=== PATIENT | male | born 1950 | race Caucasian/White ===

== ENCOUNTER → 2016-04-11 | Outpatient (CLI) | payer BC | END | disposition home or self-care (01) | LOC: C.LAB 14:18 | DX: R50.9 Fever, unspecified (principal); R05 Cough ==

== ENCOUNTER → 2016-06-26 | Outpatient (CLI) | payer BC ==
[2016-06-26 19:17] LABS: BASO % 0.3 %; BASO ABS # 0.03 K/uL (0-0.2); COMPLETE YES; EOS % 1.7 %; HEMATOCRIT 45.8 % (42-52); IG% 0.5 %; LYMPH % 33.6 %; LYMPH ABS # 3.71 K/uL (1.2-3.4); MEAN CELL VOLUME 89.8 fL (80-100); MEAN CORPUSCULAR HEMOGLOBIN 29.8 pg (25-34); MEAN CORPUSCULAR HGB CONC 33.2 g/dl (32-36); MEAN PLATELET VOLUME 9.6 fL (7.4-10.4); MONO % 10.1 %; NEUT % 53.8 %; PLATELET COUNT 305 K/uL (130-400); WHITE BLOOD COUNT 11.04 K/uL (4.8-10.8)
[2016-06-26 19:18] LABS: URINE APPEARANCE CLEAR (CLEAR); URINE BILIRUBIN NEG (NEG); URINE COLOR YELLOW; URINE EPITHELIAL CELL AUTO 0-5 /lpf (0-5); URINE NITRITE NEG (NEG); UROBILINOGEN NEG (NEG)
[2016-06-26 19:22] LABS: MANUAL MICROSCOPIC REQUIRED? NO; REVIEW REQ? YES
[2016-06-26 19:40] LABS: ALT/SGPT 36 U/L (12-78); AST/SGOT 19 U/L (15-37); BLOOD UREA NITROGEN 20 mg/dl (7-18); BUN/CREATININE RATIO 23.5 (10-20); CALCIUM 9.1 mg/dl (8.5-10.1); CARBON DIOXIDE 30 mmol/L (21-32); CHLORIDE 108 mmol/L (98-107); CREATININE 0.84 mg/dl (0.60-1.40); GLUCOSE 82 mg/dl (70-99); POTASSIUM 4.1 mmol/L (3.5-5.1); SODIUM 143 mmol/L (136-145)
[2016-06-26 19:42] LABS: ALB/GLOB RATIO 1.2 (0.9-2); ALKALINE PHOSPHATASE 53 U/L (45-117)
--- NOTE | 2016-06-27 13:06 | CODING QUERY NO DIAGNOSIS ---
: 1950 TREATMENT RENDERED WITHOUT A DIAGNOSIS To promote full compliance with coding requirements relating to patient care, physician participation is requested in all cases of intel analyst uncertainty. Please assist us with providing a diagnosis/symptom for the test(s) below: A diagnosis/symptom was not documented on your Order. A valid diagnosis/symptom is required to bill all insurances. Please remember that we are unable to code a diagnosis of rule out, probable, possible, questionable, or suspected. Tests that require a diagnosis: DOS: 06/26/16 * Comprehensive Metabolic Panel DIAGNOSIS: * CBC w/Auto Differential DIAGNOSIS: * UA Clean Catch w/Micro DIAGNOSIS: Provider Signature: Date: Thank you Yessenia Britt [facility] Information Management Once completed, please kindly fax back to [phone] For questions please call [phone]
== END | disposition home or self-care (01) ==
LOC: C.LAB 18:12
DX: R10.9 Unspecified abdominal pain (principal)

== ENCOUNTER → 2016-06-28 | Outpatient (CLI) | payer BC ==
--- NOTE | 2016-06-28 07:09 | DIAGNOSTIC IMAGING REPORT ---
[facility] ultrasound BILIARY ABDOMEN LIMITED CLINICAL HISTORY: AB PAIN pain. Nausea. TECHNIQUE: Ultrasound COMPARISON STUDY: None FINDINGS: Gallstones are present within the gallbladder lumen. Common bile duct is 5 mm. Fatty infiltration of liver. Pancreas and right kidney unremarkable. Limited visibility of pancreas. IMPRESSION: Gallstones. Normal caliber bile ducts. Fatty infiltration of liver. Electronically signed by: Levi Parada M.D. 06/28/2016 7:07 AM Dictated Date/Time: 06/28/2016 7:05 AM
== END | disposition home or self-care (01) ==
LOC: C.ULTR 06:33
DX: K80.20 Calculus of gallbladder without cholecystitis without obstruction (principal); K76.0 Fatty (change of) liver, not elsewhere classified; R10.9 Unspecified abdominal pain

== ENCOUNTER → 2016-08-13 | Outpatient (CLI) | payer BC ==
--- NOTE | 2016-08-13 17:36 | DIAGNOSTIC IMAGING REPORT ---
RENAL ULTRASOUND HISTORY: Flank pain FLANK PAIN, POSSIBLE STONE COMPARISON: None. FINDINGS: Right kidney: Maximum dimension 14 cm. No evidence for hydronephrosis. Normal corticomedullary differentiation and cortical thickness. Left kidney: Maximum dimension 13.6 cm. No evidence for hydronephrosis Bladder: No bladder wall thickening. The bilateral ureteral jets were identified. IMPRESSION: Normal renal ultrasound. Electronically signed by: Levi Parada M.D. 08/13/2016 5:35 PM Dictated Date/Time: 08/13/2016 5:34 PM
== END | disposition home or self-care (01) ==
LOC: C.ULTR 16:57
DX: R10.9 Unspecified abdominal pain (principal)

== ENCOUNTER → 2016-08-14 | Outpatient (CLI) | payer BC ==
[2016-08-14 12:24] LABS: URINE APPEARANCE CLEAR (CLEAR); URINE BILIRUBIN NEG (NEG); URINE COLOR YELLOW; URINE EPITHELIAL CELL AUTO 0-5 /lpf (0-5); URINE NITRITE NEG (NEG); URINE PH 5.5 (4.5-7.5); URINE SPECIFIC GRAVITY 1.019 (1.000-1.030); UROBILINOGEN NEG (NEG)
[2016-08-14 12:28] LABS: MANUAL MICROSCOPIC REQUIRED? NO; REVIEW REQ? NO
[2016-08-14 12:33] LABS: BASO % 0.4 %; BASO ABS # 0.03 K/uL (0-0.2); COMPLETE YES; EOS % 1.7 %; HEMATOCRIT 45.6 % (42-52); IG% 0.2 %; LYMPH % 24.7 %; MEAN CELL VOLUME 90.5 fL (80-100); MEAN CORPUSCULAR HGB CONC 34.2 g/dl (32-36); MEAN PLATELET VOLUME 10.3 fL (7.4-10.4); MONO % 12.9 %; NEUT % 60.1 %; PLATELET COUNT 275 K/uL (130-400); RED BLOOD COUNT 5.04 M/uL (4.7-6.1); WHITE BLOOD COUNT 8.09 K/uL (4.8-10.8)
[2016-08-14 12:45] LABS: BLOOD UREA NITROGEN 14 mg/dl (7-18); BUN/CREATININE RATIO 16.6 (10-20); CALCIUM 9.3 mg/dl (8.5-10.1); CARBON DIOXIDE 28 mmol/L (21-32); CHLORIDE 107 mmol/L (98-107); CREATININE 0.87 mg/dl (0.60-1.40); GLUCOSE 94 mg/dl (70-99); POTASSIUM 4.1 mmol/L (3.5-5.1); SODIUM 141 mmol/L (136-145)
[2016-08-14 12:52] LABS: ALB/GLOB RATIO 1.2 (0.9-2); ALKALINE PHOSPHATASE 58 U/L (45-117); ALT/SGPT 43 U/L (12-78); AST/SGOT 23 U/L (15-37)
== END | disposition home or self-care (01) ==
LOC: C.LAB 09:55
DX: R10.9 Unspecified abdominal pain (principal)

== ENCOUNTER → 2016-09-05 | Outpatient (CLI) | payer BC ==
[2016-09-05 16:48] LABS: MANUAL MICROSCOPIC REQUIRED? NO; REVIEW REQ? NO; URINE APPEARANCE CLEAR (CLEAR); URINE BILIRUBIN NEG (NEG); URINE COLOR YELLOW; URINE EPITHELIAL CELL AUTO 0-5 /lpf (0-5); URINE NITRITE NEG (NEG); URINE PH 5.5 (4.5-7.5); URINE SPECIFIC GRAVITY 1.017 (1.000-1.030); UROBILINOGEN NEG (NEG)
== END | disposition home or self-care (01) ==
LOC: C.LAB 15:59
DX: R31.9 Hematuria, unspecified (principal)

== ENCOUNTER → 2017-09-11 | Outpatient (CLI) | payer OTHER ==
[2017-09-11 10:37] LABS: BASO % 0.2 %; BASO ABS # 0.02 K/uL (0-0.2); EOS % 1.4 %; EOS ABS # 0.16 K/uL (0-0.5); HEMATOCRIT 46.1 % (42-52); HEMOGLOBIN 15.7 g/dL (14.0-18.0); IG# 0.05 K/uL (0.00-0.02); LYMPH % 22.7 %; LYMPH ABS # 2.51 K/uL (1.2-3.4); MEAN CELL VOLUME 90.4 fL (80-100); MEAN CORPUSCULAR HEMOGLOBIN 30.8 pg (25-34); MEAN CORPUSCULAR HGB CONC 34.1 g/dl (32-36); MEAN PLATELET VOLUME 10.3 fL (7.4-10.4); MONO % 11.6 %; MONO ABS # 1.28 K/uL (0.11-0.59); NEUT % 63.6 %; NEUT ABS # 7.06 K/uL (1.4-6.5); PLATELET COUNT 270 K/uL (130-400); RED CELL DISTRIBUTION WIDTH CV 13.9 % (11.5-14.5); RED CELL DISTRIBUTION WIDTH SD 45.8 fL (36.4-46.3); WHITE BLOOD COUNT 11.08 K/uL (4.8-10.8)
[2017-09-11 13:38] LABS: ALBUMIN 3.8 gm/dl (3.4-5.0); ALKALINE PHOSPHATASE 51 U/L (45-117); ALT/SGPT 38 U/L (12-78); AST/SGOT 25 U/L (15-37); BLOOD UREA NITROGEN 16 mg/dl (7-18); CALCIUM 8.6 mg/dl (8.5-10.1); CARBON DIOXIDE 25 mmol/L (21-32); CHOLESTEROL 164 mg/dl (0-200); CREATININE 0.99 mg/dl (0.60-1.40); GLUCOSE 98 mg/dl (70-99); LDL CHOLESTEROL CALCULATED 95 mg/dl; POTASSIUM 4.3 mmol/L (3.5-5.1); SODIUM 139 mmol/L (136-145); TOTAL PROTEIN 7.2 gm/dl (6.4-8.2)
== END | disposition home or self-care (01) ==
LOC: C.LABBC 09:06
DX: R10.9 Unspecified abdominal pain (principal); N40.1 Benign prostatic hyperplasia with lower urinary tract symptoms; R30.0 Dysuria; Z13.220 Encounter for screening for lipoid disorders

== ENCOUNTER 2022-12-18 14:26 | Observation (INO) ==
--- NOTE | 2022-12-18 15:31 | Emergency Department Note ---
History of Present Illness General Chief complaint: Visual Disturbance Stated complaint: VISUAL DISTURBANCE, NAUSEA Time Seen by Provider: 12/18/22 14:54 History of Present Illness 72-year-old male who presents to the emergency department for evaluation of diplopia. Patient states he woke up yesterday morning in his usual state of health and was scrolling on his phone and watching TV when he developed sudden double vision in his bilateral eyes. He states he covered his left eye and was able to see clearly out of the right and then when he switched to the right was able to see clearly out of the left but through both eyes saw double of everything. The incident lasted for approximately 3 to 5 minutes. He denies any other obvious associated symptoms including eye pain, headaches, dizziness/lightheadedness, nausea/vomiting, extremity weakness/numbness/tingling, slurred speech or facial droop. No complete blindness of his eyes. He does note that he had a diffusely red right eye a few weeks ago and was evaluated by many eye and told he had broken blood vessels. This spontaneously resolved on its own. Patient denies any recurrence of the double vision since his episode yesterday morning. He denies chest pain, shortness of breath, abdominal pain, diarrhea/constipation, urinary symptoms. Denies fever/chills or recent cold symptoms. No known insect bites or tick bites. He is a chronic smoker. He is not on any medications at home but tells me he has been advised to start a statin medication for high cholesterol. Denies history of stroke or [place]. No recent falls or trauma or head injury. Home Medications Medication Instructions Recorded Confirmed Type No Known Home Medications 12/18/22 12/18/22 History Allergies Allergy/AdvReac Type Severity Reaction Status Date / Time No Known Allergies Allergy Unverified 12/18/22 18:01 Past Med/Surg History Medical History (Updated 12/18/22 @ 19:54 by Kinsey Nam PA-C) Benign neoplasm of colon GERD (gastroesophageal reflux disease) Tobacco dependence Surgical History (Updated 12/18/22 @ 17:53 by Magdalena Sanon PA-C) History of tonsillectomy and adenoidectomy Hx of colonoscopy Family History (Updated 12/18/22 @ 17:55 by Magdalena Sanon PA-C) Other Family history non-contributory Social History Smoking Status: Current every day smoker Tobacco Type: Cigarettes Cigarettes Per Day: 20; Second Hand Exposure: No; Preferred Language: British Feels Safe at Home: Yes Physical Exam Vital Signs Vital Signs - 24 hr 12/18/22 14:47 12/18/22 18:50 Temperature 35.9 C L Temperature Source Temporal Artery Scan Pulse Rate 70 Pulse Rate [Apical] 65 Respiratory Rate 16 17 Respiratory Effort / Characteristics Non-Labored Spontaneous Non-Labored Respiratory Depth Normal Normal Respiratory Pattern Regular Regular Blood Pressure 145/89 H Blood Pressure [Right Arm] 141/76 H Blood Pressure Mean 107 Blood Pressure Mean [Right Arm] 97 Blood Pressure Position Sitting Pulse Oximetry 98 96 Oxygen Delivery Method Room Air Room Air Sepsis Recent Fever Within 48 Hours No Sepsis New/Unexplained Change in Mental Status N/A Sepsis Action Taken by Nursing No Action Required Constitutional: alert and oriented x3. no acute distress. nontoxic HEENT: normocephalic, atraumatic. No facial trauma. No scalp tenderness or hematoma. Normal conjunctiva.PERRLA. EOM's grossly intact. TMs pearly sin without effusion. Pharynx pink without exudate. Tonsils nonenlarged. Mucus membranes moist Neck: neck is supple, nontender. Neck ROM intact. No meningeal signs Respiratory: lungs are clear to auscultation without wheezes, rhonchi, or rales bilaterally. equal chest rise. normal respiratory effort, no accessory muscle use. Cardiovascular: normal heart sounds without murmur. regular rate and rhythm. GI: abdomen is soft, nontender. No palpable masses. No rebound tenderness or guarding. No CVA tenderness MSK: Moves all 4 extremities spontaneously Peripheral vascular: extremities warm and well perfused with palpable pulses. Neuro: without focal neuro deficits. GCS 15. CNII-XII intact. Speech clear, tongue midline, without facial droop. Strength +5 equal throughout all four extremities. Psych:appropriate mood and affect. Course Administered Medications Nicotine (Nicotine 14 Mg/24 Hr Patch) 14 mg TD QAM MARI Stop: 01/17/23 17:14 Last Admin: 12/18/22 17:22 Dose: 14 mg Documented By: AB Discontinued Medications Aspirin (Aspirin 81 Mg Chew) 324 mg PO NOW STA Stop: 12/18/22 17:10 Last Admin: 12/18/22 17:22 Dose: 324 mg Documented By: AB Ioversol (Optiray 320 500ml) 112 ml IV ONCE ONE Stop: 12/18/22 16:34 Last Admin: 12/18/22 16:34 Dose: 112 ml Documented By: ARNULFO Medical Decision Making Differential Diagnosis CVA, cranial nerve palsy, retinal detachment, vitreous hemorrhage, hyphema, glaucoma, arteritis, corneal ulcer, CRAO, CRVO, vitreous detachment, as well as other pathologies Laboratory Data Attestation: I reviewed the patient's lab results. 12/18/22 15:35 12/18/22 15:35 Lab Results 12/18/22 12/18/22 12/18/22 Range/Units 15:35 15:35 15:35 WBC 9.36 (4.8-10.8) K/ul RBC 5.27 (4.70-6.10) M/uL Hgb 16.2 (14.0-18.0) g/dl POC Hgb (14.0-18.0) g/dl Hct 47.2 (42.0-52.0) % POC Hct (42-52) % MCV 89.6 (80.0-100.0) fL MCH 30.7 (25.0-34.0) pg MCHC 34.3 (32.0-36.0) g/dL RDW Std Deviation 44.2 (36.4-46.3) fL RDW Coeff of Evan 13.6 (11.5-14.5) % Plt Count 259 (130-400) K/uL MPV 9.4 (9.4-12.4) fL Immature Gran % (Auto) 0.3 % Neut % (Auto) 55.5 % Lymph % (Auto) 29.4 % Wythe % (Auto) 12.6 % Eos % (Auto) 1.7 % Baso % (Auto) 0.5 % Neut # (Auto) 5.19 (1.40-6.50) K/uL Lymph # (Auto) 2.75 (1.20-3.40) K/uL Wythe # (Auto) 1.18 H (0.11-0.59) K/uL Eos # (Auto) 0.16 (0.00-0.50) K/uL Baso # (Auto) 0.05 (0.00-0.20) K/uL Immature Gran # (Auto) 0.03 (0.01-0.20) K/uL PT 10.8 (9.0-12.0) Seconds INR 1.0 (0.9-1.1) APTT 27.9 (21.0-31.0) Seconds PTT Ratio 1.0 POC Sodium (135-144) mmol/L Sodium 139 (136-145) mmol/L POC Potassium (3.3-5.0) mmol/L Potassium 4.5 (3.5-5.1) mmol/L POC Chloride (101-112) mmol/L Chloride 106 (98-107) mmol/L Carbon Dioxide 29 (21-32) mmol/L POC Total CO2 (24-31) mmol/L Anion Gap 4 (3-11) POC Anion Gap (16-25) mmol/L POC BUN (7-18) mg/dl BUN 19 (6-23) mg/dl Creatinine 0.79 (0.6-1.4) mg/dl POC Creatinine (0.6-1.3) mg/dl Est Cr Clr Drug Dosing 120.2 ml/min Est GFR ( Amer) 105.4 ml/min Est GFR (Non-Af Amer) 91.0 ml/min BUN/Creatinine Ratio 24.1 H (10-20) Glucose 87 (70-99(Fasting)) mg/dl POC Glucose (other) (70-99) mg/dl Calcium 9.3 (8.6-10.3) mg/dl POC Ioniz Calcium Jazlyn (1.12-1.32) mmol/l Total Bilirubin 0.5 (0.2-1.0) mg/dl AST 22 (13-39) U/L ALT 21 (7-52) U/L Alkaline Phosphatase 48 (34-104) U/L Troponin I High Sens 122.6 H* (0-20) pg/ml Total Protein 7.0 (6.0-8.3) gm/dl Albumin 4.3 (3.4-5.0) gm/dl Globulin 2.7 (2.5-4.0) gm/dl Albumin/Globulin Ratio 1.6 (0.9-2) 12/18/22 12/18/22 Range/Units 15:58 18:05 WBC (4.8-10.8) K/ul RBC (4.70-6.10) M/uL Hgb (14.0-18.0) g/dl POC Hgb 16.3 (14.0-18.0) g/dl Hct (42.0-52.0) % POC Hct 48 (42-52) % MCV (80.0-100.0) fL MCH (25.0-34.0) pg MCHC (32.0-36.0) g/dL RDW Std Deviation (36.4-46.3) fL RDW Coeff of Evan (11.5-14.5) % Plt Count (130-400) K/uL MPV (9.4-12.4) fL Immature Gran % (Auto) % Neut % (Auto) % Lymph % (Auto) % Wythe % (Auto) % Eos % (Auto) % Baso % (Auto) % Neut # (Auto) (1.40-6.50) K/uL Lymph # (Auto) (1.20-3.40) K/uL Wythe # (Auto) (0.11-0.59) K/uL Eos # (Auto) (0.00-0.50) K/uL Baso # (Auto) (0.00-0.20) K/uL Immature Gran # (Auto) (0.01-0.20) K/uL PT (9.0-12.0) Seconds INR (0.9-1.1) APTT (21.0-31.0) Seconds PTT Ratio POC Sodium 140 (135-144) mmol/L Sodium (136-145) mmol/L POC Potassium 4.3 (3.3-5.0) mmol/L Potassium (3.5-5.1) mmol/L POC Chloride 102 (101-112) mmol/L Chloride (98-107) mmol/L Carbon Dioxide (21-32) mmol/L POC Total CO2 27 (24-31) mmol/L Anion Gap (3-11) POC Anion Gap 16.0 (16-25) mmol/L POC BUN 19 H (7-18) mg/dl BUN (6-23) mg/dl Creatinine (0.6-1.4) mg/dl POC Creatinine 0.8 (0.6-1.3) mg/dl Est Cr Clr Drug Dosing ml/min Est GFR ( Amer) ml/min Est GFR (Non-Af Amer) ml/min BUN/Creatinine Ratio (10-20) Glucose (70-99(Fasting)) mg/dl POC Glucose (other) 86 (70-99) mg/dl Calcium (8.6-10.3) mg/dl POC Ioniz Calcium Jazlyn 1.22 (1.12-1.32) mmol/l Total Bilirubin (0.2-1.0) mg/dl AST (13-39) U/L ALT (7-52) U/L Alkaline Phosphatase (34-104) U/L Troponin I High Sens 116.6 H* (0-20) pg/ml Total Protein (6.0-8.3) gm/dl Albumin (3.4-5.0) gm/dl Globulin (2.5-4.0) gm/dl Albumin/Globulin Ratio (0.9-2) Imaging Data My Impression: CXR per my interpretation without acute focal consolidation, pneumothorax or pleural effusion Radiologist's Impression: Chest X-Ray 12/18/22 15:22 SINGLE VIEW CHEST CLINICAL HISTORY: Atypical chest pain. FINDINGS: 2 AP, portable, upright chest radiographs are compared to study dated 02/25/2018 and correlated with chest CT dated 11/27/2020. The examination is degraded by portable technique and apical lordotic positioning. The heart is enlarged noting atherosclerotic calcification of the thoracic aorta. The pulmonary vasculature is noncongested. Emphysema and chronic interstitial thickening is similar to previous. No airspace consolidation or large pleural effusion is identified. Foci of parenchymal scarring are seen throughout both lungs. No pneumothorax is seen. The skeletal structures are osteopenic. The bony thorax is grossly intact. IMPRESSION: Cardiomegaly and emphysema with no acute cardiopulmonary abnormality identified. ACT 112: Negative or not required by law. Electronically signed by: Alphonse Fitzpatrick M.D. 12/18/2022 5:[address] 12/18/22 15:[address] OF THE BRAIN; CT ANGIOGRAM OF THE BRAIN; CT ANGIOGRAM OF THE NECK CLINICAL HISTORY: Diplopia. COMPARISON STUDY: No priors. TECHNIQUE: Unenhanced axial CT scan of the brain is performed. Subsequently, following the IV administration of 112 of Optiray 320, CT angiogram of the head and neck was performed from the aortic arch to the vertex. Images are reviewed in the axial, sagittal, and coronal planes. 3-D MIPS images are created and assessed. IV contrast was administered without complication. All measurements were calculated based on NASCET criteria. A dose lowering technique was utilized adhering to the principles of ALARA. CT DOSE: 1124.86 mGy.cm FINDINGS: Brain parenchyma: There is age-related involutional change noting minimal microangiopathic disease. There is no hemorrhage, mass effect, or evidence of acute territorial ischemia by CT criteria. There is no evidence of enhancing mass lesion on the angiogram phase images. The ventricles, sulci, and cisterns are prominent secondary to involutional change. Sin-white matter differentiation is preserved. No extra-axial fluid collection is seen. Thoracic aorta: Visualized portions of the thoracic aorta are normal in caliber. The aortic arch demonstrates standard 3-vessel anatomy. Right carotid arterial system: The right common carotid artery is widely patent, as are the right internal and external carotid arteries. Left carotid arterial system: The left common carotid artery is widely patent, as are the left internal and external carotid arteries. Vertebral arteries: The vertebral arteries are widely patent bilaterally and codominant. Subclavian arteries: Widely patent bilaterally. Intracranial vasculature: There is atherosclerotic calcification of the cavernous carotid arteries. The internal carotid arteries are patent at the skul l base, as are the anterior and middle cerebral arteries bilaterally. The vertebrobasilar system and posterior cerebral arteries are widely patent. The vertebral arteries are codominant. 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 No additional aneurysm is identified. No high-grade stenosis or focal vessel cut off is seen throughout the intracranial circulation. Jugular veins: Patent bilaterally. Dural sinuses: Patent. Lung apices: Partially visualized upper lobe lung parenchyma appears clear. Soft tissues: The visualized pharyngeal soft tissues are normal in appearance noting angiographic phase technique. The oropharyngeal airway appears widely patent. The thyroid gland is mildly enlarged and heterogeneous. A low- attenuation nodule in the left lobe measures 3.1 cm. The salivary glands are normal in appearance. No cervical lymphadenopathy is seen. Skeletal structures: The skeletal structures are osteopenic. The calvarium appears intact. The cervical spine is maintained noting mild multilevel spondyl osis. Orbits: The bony orbits are intact. Orbital contents are normal as visualized. Sinuses and mastoids: The paranasal sinuses are clear. The mastoid air cells are well pneumatized. IMPRESSION: 1. There is no hemorrhage, mass effect, or evidence of acute territorial ischemia by CT criteria. 2. 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 3. Otherwise unremarkable CT angiogram of the brain. 4. Unremarkable CT angiogram of the neck. 5. There is a 3.1 cm left lobe thyroid nodule. A nonemergent thyroid ultrasound is recommended in follow-up. ACT 112: Positive. There are findings on this exam that require communication between the performing entity and the patient following Patient Test Result Information Act ([place] Act 112) guidelines. Electronically signed by: Alphonse Fitzpatrick M.D. 12/18/2022 4:47 PM Head CTA 12/18/22 15:[address] OF THE BRAIN; CT ANGIOGRAM OF THE BRAIN; CT ANGIOGRAM OF THE NECK CLINICAL HISTORY: Diplopia. COMPARISON STUDY: No priors. TECHNIQUE: Unenhanced axial CT scan of the brain is performed. Subsequently, following the IV administration of 112 of Optiray 320, CT angiogram of the head and neck was performed from the aortic arch to the vertex. Images are reviewed in the axial, sagittal, and coronal planes. 3-D MIPS images are created and assessed. IV contrast was administered without complication. All measurements were calculated based on NASCET criteria. A dose lowering technique was utilized adhering to the principles of ALARA. CT DOSE: 1124.86 mGy.cm FINDINGS: Brain parenchyma: There is age-related involutional change noting minimal microangiopathic disease. There is no hemorrhage, mass effect, or evidence of acute territorial ischemia by CT criteria. There is no evidence of enhancing mass lesion on the angiogram phase images. The ventricles, sulci, and cisterns are prominent secondary to involutional change. Sin-white matter differentiation is preserved. No extra-axial fluid collection is seen. Thoracic aorta: Visualized portions of the thoracic aorta are normal in caliber. The aortic arch demonstrates standard 3-vessel anatomy. Right carotid arterial system: The right common carotid artery is widely patent, as are the right internal and external carotid arteries. Left carotid arterial system: The left common carotid artery is widely patent, as are the left internal and external carotid arteries. Vertebral arteries: The vertebral arteries are widely patent bilaterally and codominant. Subclavian arteries: Widely patent bilaterally. Intracranial vasculature: There is atherosclerotic calcification of the cavernous carotid arteries. The internal carotid arteries are patent at the skull base, as are the anterior and middle cerebral arteries bilaterally. The vertebrobasilar system and posterior cerebral arteries are widely patent. The vertebral arteries are codominant. 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 No additional aneurysm is identified. No high-grade stenosis or focal vessel cut off is seen throughout the intracranial circulation. Jugular veins: Patent bilaterally. Dural sinuses: Patent. Lung apices: Partially visualized upper lobe lung parenchyma appears clear. Soft tissues: The visualized pharyngeal soft tissues are normal in appearance noting angiographic phase technique. The oropharyngeal airway appears widely patent. The thyroid gland is mildly enlarged and heterogeneous. A low- attenuation nodule in the left lobe measures 3.1 cm. The salivary glands are normal in appearance. No cervical lymphadenopathy is seen. Skeletal structures: The skeletal structures are osteopenic. The calvarium appears intact. The cervical spine is maintained noting mild multilevel spondylosis. Orbits: The bony orbits are intact. Orbital contents are normal as visualized. Sinuses and mastoids: The paranasal sinuses are clear. The mastoid air cells are well pneumatized. IMPRESSION: 1. There is no hemorrhage, mass effect, or evidence of acute territorial ischemia by CT criteria. 2. 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 3. Otherwise unremarkable CT angiogram of the brain. 4. Unremarkable CT angiogram of the neck. 5. There is a 3.1 cm left lobe thyroid nodule. A nonemergent thyroid ultrasound is recommended in follow-up. ACT 112: Positive. There are findings on this exam that require communication between the performing entity and the patient following Patient Test Result Information Act ([place] Act 112) guidelines. Electronically signed by: Alphonse Fitzpatrick M.D. 12/18/2022 4:47 PM Neck CTA 12/18/22 15:[address] OF THE BRAIN; CT ANGIOGRAM OF THE BRAIN; CT ANGIOGRAM OF THE NECK CLINICAL HISTORY: Diplopia. COMPARISON STUDY: No priors. TECHNIQUE: Unenhanced axial CT scan of the brain is performed. Subsequently, following the IV administration of 112 of Optiray 320, CT angiogram of the head and neck was performed from the aortic arch to the vertex. Images are reviewed in the axial, sagittal, and coronal planes. 3-D MIPS images are created and assessed. IV contrast was administered without complication. All measurements were calculated based on NASCET criteria. A dose lowering technique was utilized adhering to the principles of ALARA. CT DOSE: 1124.86 mGy.cm FINDINGS: Brain parenchyma: There is age-related involutional change noting minimal microangiopathic disease. There is no hemorrhage, mass effect, or evidence of acute territorial ischemia by CT criteria. There is no evidence of enhancing mass lesion on the angiogram phase images. The ventricles, sulci, and cisterns are prominent secondary to involutional change. Sin-white matter differentiation is preserved. No extra-axial fluid collection is seen. Thoracic aorta: Visualized portions of the thoracic aorta are normal in caliber. The aortic arch demonstrates standard 3-vessel anatomy. Right carotid arterial system: The right common carotid artery is widely patent, as are the right internal and external carotid arteries. Left carotid arterial system: The left common carotid artery is widely patent, as are the left internal and external carotid arteries. Vertebral arteries: The vertebral arteries are widely patent bilaterally and codominant. Subclavian arteries: Widely patent bilaterally. Intracranial vasculature: There is atherosclerotic calcification of the cavernous carotid arteries. The internal carotid arteries are patent at the skull base, as are the anterior and middle cerebral arteries bilaterally. The vertebrobasilar system and posterior cerebral arteries are widely patent. The vertebral arteries are codominant. 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 No additional aneurysm is identified. No high-grade stenosis or focal vessel cut off is seen throughout the intracranial circulation. Jugular veins: Patent bilaterally. Dural sinuses: Patent. Lung apices: Partially visualized upper lobe lung parenchyma appears clear. Soft tissues: The visualized pharyngeal soft tissues are normal in appearance noting angiographic phase technique. The oropharyngeal airway appears widely patent. The thyroid gland is mildly enlarged and heterogeneous. A low- attenuation nodule in the left lobe measures 3.1 cm. The salivary glands are normal in appearance. No cervical lymphadenopathy is seen. Skeletal structures: The skeletal structures are osteopenic. The calvarium appears intact. The cervical spine is maintained noting mild multilevel spondylosis. Orbits: The bony orbits are intact. Orbital contents are normal as visualized. Sinuses and mastoids: The paranasal sinuses are clear. The mastoid air cells are well pneumatized. IMPRESSION: 1. There is no hemorrhage, mass effect, or evidence of acute territorial ischemia by CT criteria. 2. 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 3. Otherwise unremarkable CT angiogram of the brain. 4. Unremarkable CT angiogram of the neck. 5. There is a 3.1 cm left lobe thyroid nodule. A nonemergent thyroid ultrasound is recommended in follow-up. ACT 112: Positive. There are findings on this exam that require communication between the performing entity and the patient following Patient Test Result Information Act ([place] Act 112) guidelines. Electronically signed by: Alphonse Fitzpatrick M.D. 12/18/2022 4:47 PM MDM Narrative 72-year-old male who presents to the emergency department for evaluation of transient binocular diplopia. Review of pertinent visits and past medical history performed. Vital signs in ED stable, afebrile. Patient was seen and evaluated as above. He developed transient diplopia yesterday morning lasting 3 to 5 minutes. He denies any other associated symptoms or strokelike symptoms. He was not experiencing any chest pain or shortness of breath at that time as well. IV access was established and labs and imaging were obtained. CBC demonstrates no leukocytosis or acute anemia. CMP without significant electrolyte abnormalities. Renal function within normal limits. LFTs unremarkable. Coags within normal limits. High-sensitivity troponin elevated at 122. Repeat 2 hour troponin 116.6. EKG per my interpretation demonstrates n ormal sinus rhythm at a rate of 62 bpm without evidence of ST wave abnormalities or ischemic changes. Head and head and neck CTAs were obtained given presentation. Head CT negative for acute intracranial findings. No hemorrhage, mass effect or ischemia. 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 Neck CTA unremarkable. Incidental finding of a 3.1 cm left lobe thyroid nodule noted. A nonemergent thyroid ultrasound is recommended. On exam, patient is well-appearing in no acute distress. His physical exam is relatively nonfocal. He is neurologically intact without deficits. Upon further questioning, he does note for the last few weeks some chest discomfort across his chest that comes on intermittently. It is not associated with exertion. He was attributing it to muscle pain as he does lift weights in his upper body. He denies overt chest pain at this time. He was however given aspirin 325 mg chewed upon lab results. Patient was reassessed on multiple occasions throughout ED stay. He remained stable with no new concerns. He is updated on all exam findings and test results. Given elevated troponin as well as transient diplopia, I do feel patient would be best served with admission to the hospital for further neurology and cardiac work-up. He was agreeable to admission to the hospital. I did discuss case with hospitalist physician assistant construction superintendent, Magdalena Sanon PA-C, who graciously accepted patient to their service for further management. Patient was admitted in stable condition. Case was discussed with ED attending, Dr. Ventura, who agrees with work-up and treatment plan Impression & Plan Diplopia, Tobacco dependence, Elevated troponin Discharge Plan Visit Data Chief Complaint: Visual Disturbance Stated Complaint: VISUAL DISTURBANCE, NAUSEA ED Provider: Brenda Ventura ED Midlevel Provider: Kinsey Nam Discharge Problem: Diplopia, Tobacco dependence, Elevated troponin Patient Disposition: Admitted As Inpatient Forms Stand Alone Forms: My [facility] Prescriptions Prescriptions: No Action No Known Home Medications Referrals Referrals: Tiago Abreu Jr, [Physician] -
--- NOTE | 2022-12-18 15:37 | Emergency Department Note ---
ED Visit Note I have been personally involved in this patient's case with CECILY Huang. Imaging and laboratory results were reviewed. Patient's laboratory work reveals an elevated troponin, EKG was reviewed and reveals no acute ischemic change. Patient's case was discussed with the hospitalist service for admission. I agree with the diagnosis and management decisions and have been personally involved in the case. .
[2022-12-18 15:59] LABS: Basophils # (auto) 0.05 K/uL (0.00-0.20); Basophils % (auto) 0.5 %; Eosinophils # (auto) 0.16 K/uL (0.00-0.50); Eosinophils % (auto) 1.7 %; Hematocrit (blood only) 47.2 % (42.0-52.0); Hemoglobin 16.2 g/dl (14.0-18.0); Immature Granulocytes # (auto) 0.03 K/uL (0.01-0.20); Immature Granulocytes % (auto) 0.3 %; Lymphocytes # (auto) 2.75 K/uL (1.20-3.40); Lymphocytes % (auto) 29.4 %; Mean Corpuscular Hemoglobin 30.7 pg (25.0-34.0); Mean Corpuscular Hgb Conc 34.3 g/dL (32.0-36.0); Mean Corpuscular Volume 89.6 fL (80.0-100.0); Mean Platelet Volume 9.4 fL (9.4-12.4); Monocytes # (auto) 1.18 K/uL (0.11-0.59); Monocytes % (auto) 12.6 %; Neutrophils # (auto) 5.19 K/uL (1.40-6.50); Neutrophils % (auto) 55.5 %; Platelet Count 259 K/uL (130-400); RDW Coefficient of Variation 13.6 % (11.5-14.5); RDW Standard Deviation 44.2 fL (36.4-46.3); Red Blood Count 5.27 M/uL (4.70-6.10); White Blood Count 9.36 K/ul (4.8-10.8)
[2022-12-18 16:10] LABS: iSTAT Creatinine 0.8 mg/dl (0.6-1.3); iSTAT Hemoglobin 16.3 g/dl (14.0-18.0); iSTAT Ionized Calcium 1.22 mmol/l (1.12-1.32); iSTAT Potassium 4.3 mmol/L (3.3-5.0)
[2022-12-18 16:13] LABS: Albumin Globulin Ratio 1.6 (0.9-2); Albumin Level 4.3 gm/dl (3.4-5.0); BUN Creatinine Ratio 24.1 (10-20); Bilirubin,Total 0.5 mg/dl (0.2-1.0); Calcium 9.3 mg/dl (8.6-10.3); Creatinine Clr Calc Pharmacy 120.2 ml/min; Est GFR (African American) 105.4 ml/min; Globulin 2.7 gm/dl (2.5-4.0); Potassium 4.5 mmol/L (3.5-5.1)
[2022-12-18 16:20] LABS: Troponin I High Sensitivity 122.6 pg/ml (0-20)
[2022-12-18] MEDS ORDERED: OPTIRAY 320 500ml IV ONE (16:33)
--- NOTE | 2022-12-18 16:49 | CT Scan Report ---
UNENHANCED CT OF THE BRAIN; CT ANGIOGRAM OF THE BRAIN; CT ANGIOGRAM OF THE NECK CLINICAL HISTORY: Diplopia. COMPARISON STUDY: No priors. TECHNIQUE: Unenhanced axial CT scan of the brain is performed. Subsequently, following the IV adminis tration of 112 of [address] 320, CT angiogram of the head and neck was performed from the aortic arch t o the vertex. Images are reviewed in the axial, sagittal, and coronal planes. 3-D MIPS images are cre ated and assessed. IV contrast was administered without complication. All measurements were calculate d based on NASCET criteria. A dose lowering technique was utilized adhering to the principles of ALA RA. CT DOSE: 1124.86 mGy.cm FINDINGS: Brain parenchyma: There is age-related involutional change noting minimal microangiopathic disease. T here is no hemorrhage, mass effect, or evidence of acute territorial ischemia by CT criteria. There i s no evidence of enhancing mass lesion on the angiogram phase images. The ventricles, sulci, and cist erns are prominent secondary to involutional change. Sin-white matter differentiation is preserved. No extra-axial fluid collection is seen. Thoracic aorta: Visualized portions of the thoracic aorta are normal in caliber. The aortic arch demo nstrates standard 3-vessel anatomy. Right carotid arterial system: The right common carotid artery is widely patent, as are the right int ernal and external carotid arteries. Left carotid arterial system: The left common carotid artery is widely patent, as are the left internal communications intern al and external carotid arteries. Vertebral arteries: The vertebral arteries are widely patent bilaterally and codominant. Subclavian arteries: Widely patent bilaterally. Intracranial vasculature: There is atherosclerotic calcification of the cavernous carotid arteries. T he internal carotid arteries are patent at the skull base, as are the anterior and middle cerebral ar teries bilaterally. The vertebrobasilar system and posterior cerebral arteries are widely patent. The vertebral arteries are codominant. 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 No additional aneurysm is identified. No high-grade stenosis or fo marylin vessel cut off is seen throughout the intracranial circulation. Jugular veins: Patent bilaterally. Dural sinuses: Patent. Lung apices: Partially visualized upper lobe lung parenchyma appears clear. Soft tissues: The visualized pharyngeal soft tissues are normal in appearance noting angiographic pha se technique. The oropharyngeal airway appears widely patent. The thyroid gland is mildly enlarged an d heterogeneous. A low-attenuation nodule in the left lobe measures 3.1 cm. The salivary glands are n ormal in appearance. No cervical lymphadenopathy is seen. Skeletal structures: The skeletal structures are osteopenic. The calvarium appears intact. The cervic al spine is maintained noting mild multilevel spondylosis. Orbits: The bony orbits are intact. Orbital contents are normal as visualized. Sinuses and mastoids: The paranasal sinuses are clear. The mastoid air cells are well pneumatized. IMPRESSION: 1. There is no hemorrhage, mass effect, or evidence of acute territorial ischemia by CT criteria. 2. 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 3. Otherwise unremarkable CT angiogram of the brain. 4. Unremarkable CT angiogram of the neck. 5. There is a 3.1 cm left lobe thyroid nodule. A nonemergent thyroid ultrasound is recommended in fol low-up. ACT 112: Positive. There are findings on this exam that require communication between the performing entity and the patient following Patient Test Result Information Act ([place] Act 112) guidelines. Electronically signed by: Alphonse Fitzpatrick M.D. 12/18/2022 4:47 PM
[2022-12-18 16:55] LABS: Partial Thromboplastin Time 27.9 Seconds (21.0-31.0); Prothrombin Time 10.8 Seconds (9.0-12.0)
[2022-12-18] MEDS ORDERED: ASPIRIN 81 MG CHEW PO STA (17:09)
[2022-12-18] MEDS ORDERED: NICOTINE 14 MG/24 HR PATCH TD SCH (17:15)
--- NOTE | 2022-12-18 17:16 | XRay Report ---
SINGLE VIEW CHEST CLINICAL HISTORY: Atypical chest pain. FINDINGS: 2 AP, portable, upright chest radiographs are compared to study dated 02/25/2018 and correlat ed with chest CT dated 11/27/2020. The examination is degraded by portable technique and apical lordo tic positioning. The heart is enlarged noting atherosclerotic calcification of the thoracic aorta. Th e pulmonary vasculature is noncongested. Emphysema and chronic interstitial thickening is similar to previous. No airspace consolidation or large pleural effusion is identified. Foci of parenchymal scar ring are seen throughout both lungs. No pneumothorax is seen. The skeletal structures are osteopenic. The bony thorax is grossly intact. IMPRESSION: Cardiomegaly and emphysema with no acute cardiopulmonary abnormality identified. ACT 112: Negative or not required by law. Electronically signed by: Alphonse Fitzpatrick M.D. 12/18/2022 5:15 PM
--- NOTE | 2022-12-18 18:16 | History & Physical Report ---
Date of Service December 18, 2022 Assessment & Plan (1) Double vision: Plan Double vision Likely TIA Patient came in with complaint of double vision with spontaneous resolution in 3 to 5 minutes x yesterday. Patient denies any history of stroke or heart attack or stent in the past. 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 Neurochecks, MRI brain with and without contrast, neurology consult. Fasting lipid panel, echo, DAPT for now. A1c. Await further neurology input. Likely will need outpatient ophthalmology evaluation. Elevated troponin: doesn't follow w/ general physician, complaints of vague chest pain on and off though reports he can reproduce it w/ certain shoulder movement. telemetry monitoring, trend trops, follow echo and lipid profile. cardio consult. DVT prophylaxis: SCDs for now. Full code History of Present Illness Chief Complaint: Double vision Primary Care Provider: Theresa Peterson DO 72-year-old male with PMH of tobacco dependence, esophageal reflux presented to the ED today with complaint of double vision yesterday. Per patient, he was watching television and playing at his mobile at the same time when he had abrupt onset of double vision, he arranged his glasses with no improvement, reports resolution of his double vision in about 3 to 5 minutes spontaneously. Denies any headache or dizziness, denies any focal weakness/numbness/tingling of extremities. Patient does report chronic chest pain on and off which he states comes w/ with certain movements of his hands/shoulders intermittently but not all the time. He denies fever/sore throat/cough/palpitations/abdominal pain/acute changes in his bowel or bladder habit. He has good appetite. He smokes 1 packs a day, for about 50 years. He drinks about 12 drinks in a week. Denies recreational drug use but uses marijuana very occasionally. Last use about a week ago. Patient reports he does not use any medications at home, denies any chronic past medical history. Plan of care discussed with the patient, he voiced understanding. Allergies Allergy/AdvReac Type Severity Reaction Status Date / Time No Known Allergies Allergy Unverified 12/18/22 18:01 Home Medications Medication Instructions Recorded Confirmed Type No Known Home Medications 12/18/22 12/18/22 History Past Med/Surg History Medical History (Updated 12/18/22 @ 19:54 by Kinsey Nam PA-C) Benign neoplasm of colon GERD (gastroesophageal reflux disease) Tobacco dependence Surgical History (Updated 12/18/22 @ 17:53 by Magdalena Sanon PA-C) History of tonsillectomy and adenoidectomy Hx of colonoscopy Family History (Updated 12/18/22 @ 17:55 by Magdalena Sanon PA-C) Other Family history non-contributory Social History Smoking Status: Current every day smoker Tobacco Type: Cigarettes Cigarettes Per Day: 20; Second Hand Exposure: No; Preferred Language: Bel[place]an Feels Safe at Home: Yes Review of Systems Review of Systems: Negative otherwise mentioned in HPI. Physical Exam Physical Exam: GENERAL: Alert and oriented x3. NAD, on RA. HEENT: No pallor, no icterus. Pupils equal, round and reactive to light. Oral mucosa moist. NECK: No JVD, no neck masses. HEART: S1 and S2 heard. Regular rate and rhythm. No murmur, no gallop. RESPIRATORY SYSTEM: Normal AP diameter. No accessory muscle use. No wheezing, no crackles. ABDOMEN: Soft, bowel sounds present, nontender, no distention. CENTRAL NERVOUS SYSTEM: No facial droop. Speech is clear. Obeys simple commands. Moves extremities. EXTREMITIES: No edema, no erythema seen. Results & Data Results & Data Vital Signs (Past 12 Hours) Vital Signs Temp Pulse Resp BP Pulse Ox O2 Del Method 12/18/22 14:47 35.9 C L 70 16 145/89 H 98 Room Air
[2022-12-18] MEDS ORDERED: LORazepam 0.5 MG TAB PO PRN (19:18)
[2022-12-18] MEDS ORDERED: LORazepam 2 MG/1 ML VIAL IV PRN (19:33)
[2022-12-18] MEDS ORDERED: PHARMACIST DISCHARGE MED REC CONSULT PRN (20:36)
[2022-12-18] MEDS ORDERED: GADOBUTROL 65ML VIAL IV ONE (21:10)
--- NOTE | 2022-12-18 21:43 | Magnetic Resonance Report ---
Exam(s): MRI HEAD W/WO Contrast IV Amt: 12 cc omar EXAM: MR Head Without and With Intravenous Contrast CLINICAL HISTORY: Reason for exam: Diplopia, r/o TIA. TECHNIQUE: Magnetic resonance images of the head/brain without and with intravenous contrast in multiple planes. CONTRAST: Patient received 12 cc omar of IV contrast COMPARISON: No relevant prior studies available. FINDINGS: No acute territorial infarct. No acute intracranial hemorrhage. No midline shift or mass effect. The territorial mai-white matter differentiation is maintained throughout. Age-related cerebral volume loss. Periventricular and subcortical white matter T2 signal intensity, consistent with chronic microangiopathy. The visualized orbits appear grossly unremarkable. The calvarium is intact. The visualized paranasal sinuses and mastoid air cells are grossly clear. IMPRESSION: No acute territorial infarct. No acute intracranial hemorrhage. No midline shift or mass effect. Electronically signed by: Juventino Huitron MD 12/18/22 21:42 PM
[2022-12-19 06:55] LABS: Basophils # (auto) 0.04 K/uL (0.00-0.20); Basophils % (auto) 0.5 %; Eosinophils # (auto) 0.23 K/uL (0.00-0.50); Eosinophils % (auto) 2.7 %; Hematocrit (blood only) 44.5 % (42.0-52.0); Hemoglobin 15.1 g/dl (14.0-18.0); Immature Granulocytes # (auto) 0.03 K/uL (0.01-0.20); Immature Granulocytes % (auto) 0.3 %; Lymphocytes # (auto) 2.53 K/uL (1.20-3.40); Lymphocytes % (auto) 29.4 %; Mean Corpuscular Hemoglobin 30.3 pg (25.0-34.0); Mean Corpuscular Hgb Conc 33.9 g/dL (32.0-36.0); Mean Corpuscular Volume 89.4 fL (80.0-100.0); Mean Platelet Volume 9.1 fL (9.4-12.4); Monocytes # (auto) 1.21 K/uL (0.11-0.59); Monocytes % (auto) 14.1 %; Neutrophils # (auto) 4.57 K/uL (1.40-6.50); Platelet Count 231 K/uL (130-400); RDW Coefficient of Variation 13.7 % (11.5-14.5); RDW Standard Deviation 44.6 fL (36.4-46.3); Red Blood Count 4.98 M/uL (4.70-6.10); White Blood Count 8.61 K/ul (4.8-10.8)
--- NOTE | 2022-12-19 07:41 | Cardiology Consultation ---
Date of Consultation December 19, 2022 Assessment & Plan (1) Diplopia: (2) Elevated troponin: Plan IMPRESSION: 72 year old male without significant PMH presented with acute onset of diplopia that resolved spontaneously in under 5 minutes. No other neurologic deficits noted. CT and MRI of the head unremarkable. HS troponin peaked at 122 and trended downward. EKG normal without acute ST segment changes. Echo pending. No complaints of chest pain. PLAN: Started on ASA, Plavix, and statin therapy due to possible TIA per hospitalist team. Consider outpatient zio monitor to rule out PAF-- none seen on telemetry this admission. Echo obtained-- results pending. Future considerations for an outpatient stress test. Urged smoking cessation and reduction in alcohol intake. Case discussed with Dr. Rees. Supervising Physician Co-Signing Physician Notes 72-year-old male presented to the emergency department with diplopia. Reports episodes of right-sided shoulder discomfort attributed to muscle strain. Denies exertional chest pain or heaviness. No unusual shortness of breath. Active around his home able to complete activities of daily living and chores without restriction. Denies orthopnea, PND, or lower extremity edema. No palpitations, lightheadedness, dizziness, syncope, or near syncope. High-sensitivity troponin mildly elevated prompting request for cardiology evaluation. PE: VSS. Gen: NAD, AAOx3. Heart: Regular rhythm. Normal S1, S2. No murmur. Lungs: Clear bilateral, no rales, rhonchi, wheeze. Extremities: No edema. Neuro: No focal motor deficit. A/P: Agree with above SIGN LANGUAGE INSTRUCTOR history, physical exam, assessment and plan. Mildly elevated high-sensitivity troponin of unclear significance. Recommend further risk stratification with exercise stress testing. Inpatient versus outpatient testing discussed. Patient agreeable to follow-up appointment and exercise stress echo in the outpatient setting. 14-day ZIO monitor. Medication recommendations as per neurology. Smoking cessation advised. History of Present Illness Reason for Consultation: Elevated troponin Requesting Physician: Caryn hercules Attending Physician: Adis Cameron MD History of Present Illness 72-year-old male who presented to [facility] emergency department due to an abrupt onset of double vision--diplopia resolved spontaneously after about 3 to 5 minutes. Denied any other neurologic complaints including headache, dizziness or focal weakness/numbness/tingling of the extremities. Labs: CBC and BMP unremarkable. High-sensitivity troponin peaked at 122.6 >> 116.6 this am. It is generally controlled with a triglyceride level of 172 and an LDL of 78. EKG: NSR without acute ST segment changes. Echo: PENDING* Chest x-ray unremarkable. CT of the head showed no evidence of hemorrhage, mass effect, or acute territorial ischemia. 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 Incidentally found a 3.1 cm left thyroid nodule. MRI of the brain: No acute territorial infarct. No acute intracranial hemorrhage, midline shift, or mass effect. Patient was placed on dual antiplatelet therapy with aspirin and Plavix and started on statin therapy with atorvastatin. Upon entrance into the room patient resting on the edge of the bed eating breakfast. No return of double vision. Denies any chest pain or shortness of breath. Enjoys playing [employer] and traveling to resell them. Notes an active lifestyle. Able to walk around his block ~ 2 miles without exertional symptoms. Also does light weight training without difficulty. Does have chronic shoulder and neck pain. No palpitations. Denies lightheadedness. No orthopnea or PND. No lower extremity edema. Continues to smoke 1ppd. Telemetry this admission: SR 60-80s Past medical history: GERD Tobacco use, 1 pack/day x 50 years Alcohol use, approximately 12 drinks per week Occasional marijuana use Allergies Allergy/AdvReac Type Severity Reaction Status Date / Time No Known Allergies Allergy Unverified 12/18/22 18:01 Home Medications Medication Instructions Recorded Confirmed Type aspirin 81 mg tablet,delayed 81 mg PO QAM #30 tabs 12/19/22 Rx release clopidogrel 75 mg tablet 75 mg PO QAM #20 tabs 12/19/22 Rx Patient History Medical History (Updated 12/18/22 @ 19:54 by Kinsey Nam PA-C) Tobacco dependence Benign neoplasm of colon GERD (gastroesophageal reflux disease) Surgical History (Updated 12/18/22 @ 17:53 by Magdalena Sanon PA-C) History of tonsillectomy and adenoidectomy Hx of colonoscopy Family History (Updated 12/18/22 @ 17:55 by Magdalena Sanon PA-C) Other Family history non-contributory Social History Smoking Status: Current every day smoker Tobacco Type: Cigarettes Cigarettes Per Day: 20; Second Hand Exposure: No; Do You Dip or Chew Tobacco: No; Hx Alcohol Use: Yes Alcohol type: beer and hard liquor Hx Substance Use: Yes Preferred Language: Finnish Communication Ability: Effective 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 Beliefs That Will Affect Care: None Current Living Situation: Spouse Other Information That Helps Us Care for You: No Feels Safe at Home: Yes Safety Concerns: Feels Safe At This Time Assistive Devices: Glasses Review of Systems Review of Systems: All systems reviewed & are unremarkable except as noted in HPI & below Physical Exam Constitutional: WD/WN, vitals as above Eyes: PERRL, conjunctivae normal, anicteric sclerae ENMT: external ear and nose normal, oropharynx normal Neck: normal visual inspection and trachea midline Respiratory: normal respiratory effort, lungs clear to auscultation Auscultation: + crackles (fine crackles in BL bases ); no rhonchi and no wheezes Cardiovascular: RRR, no murmur, no edema Heart Sounds: normal S1 and normal S2 Vessels: no JVD Gastrointestinal (Abdomen): normal bowel sounds, soft, nontender, no hepatosplenomegaly Skin: no rashes, warm and dry Neurologic: PERRL, EOMI, accommodation nl, no face palsy, no dysarthria Psychiatric: A+Ox3, euthymic affect Results & Data Vital Signs (Past 12 Hours) Vital Signs Temp Pulse Pulse Resp BP BP BP 12/19/22 04:00 36.5 C 66 18 121/70 12/18/22 23:11 72 12/18/22 22:47 36.5 C 77 18 143/81 H 12/18/22 22:21 70 16 108/52 L Pulse Ox O2 Del Method 12/19/22 04:00 96 Room Air 12/18/22 23:11 12/18/22 22:47 96 Room Air 12/18/22 22:21 98 Room Air Laboratory Results Cardiac Enzymes 12/18/22 12/18/22 Range/Units 15:35 18:05 AST 22 (13-39) U/L Troponin I High Sens 122.6 H* 116.6 H* (0-20) pg/ml Coagulation 12/18/22 Range/Units 15:35 PT 10.8 (9.0-12.0) Seconds APTT 27.9 (21.0-31.0) Seconds Lipids 12/19/22 Range/Units 06:34 Triglycerides 172 H (0-150) mg/dl Cholesterol 149 (0-200) mg/dl HDL Cholesterol 37 mg/dl Cholesterol/HDL Ratio 4.0 (0-5) CBC 12/18/22 12/19/22 Range/Units 15:35 06:34 WBC 9.36 8.61 (4.8-10.8) K/ul RBC 5.27 4.98 (4.70-6.10) M/uL Hgb 16.2 15.1 (14.0-18.0) g/dl Hct 47.2 44.5 (42.0-52.0) % Plt Count 259 231 (130-400) K/uL Neut # (Auto) 5.19 4.57 (1.40-6.50) K/uL Lymph # (Auto) 2.75 2.53 (1.20-3.40) K/uL [place] # (Auto) 1.18 H 1.21 H (0.11-0.59) K/uL Eos # (Auto) 0.16 0.23 (0.00-0.50) K/uL Baso # (Auto) 0.05 0.04 (0.00-0.20) K/uL Comprehensive Metabolic Panel 12/18/22 Range/Units 15:35 Sodium 139 (136-145) mmol/L Potassium 4.5 (3.5-5.1) mmol/L Chloride 106 (98-107) mmol/L Carbon Dioxide 29 (21-32) mmol/L BUN 19 (6-23) mg/dl Creatinine 0.79 (0.6-1.4) mg/dl Glucose 87 (70-99(Fasting)) mg/dl Calcium 9.3 (8.6-10.3) mg/dl AST 22 (13-39) U/L ALT 21 (7-52) U/L Alkaline Phosphatase 48 (34-104) U/L Total Protein 7.0 (6.0-8.3) gm/dl Albumin 4.3 (3.4-5.0) gm/dl Intake and Output 1112/19/22 12/19/22 22:59 06:59 14:59 Other: Other Intake Source NPO Weight 114.7 kg 111.1 kg Weight Measurement Method Standing Scale Built in [facility]
[2022-12-19] MEDS ORDERED: CLOPIDOGREL BISULFATE 75 MG TAB PO SCH (09:00)
[2022-12-19] MEDS ORDERED: ATORVASTATIN 40 MG TAB PO SCH ×2 (09:00)
[2022-12-19] MEDS ORDERED: ASPIRIN 81 MG ECTAB PO SCH ×2 (09:00)
[2022-12-19 09:32] LABS: Estimated Average Glucose 126 mg/dl
--- NOTE | 2022-12-19 11:07 | Neurology Consultation ---
Date of Consultation December 19, 2022 Assessment & Plan (1) Diplopia: Transient binocular diplopia with negative workup including MRI and CTA. TIA is likely and agree with dual antiplatelet therapy for 21 days, followed by aspirin 81mg daily. Information Security Consultant smoking cessation, establish care with PCP. Agree with outpa tient ophthalmology. Do not suspect this is related to the 4mm aneurysm. -- Aspirin 81mg daily and plavix 75mg daily -- No stroke indication for statin, LDL 78 -- Ophthalmology and PCP followup. -- Can refer to neurosurgery for aneurysm Telehealth Consultation Telehealth Information Telehealth Information: I performed this visit using a real-time telehealth connection between my location and the patients location ([facility]). After connecting through interactive tele-video, patient was identified by name and date of and/or wristband check.Patient (or authorized healthcare surgical sales representative) was informed that this was a telemedicine visit and it was being conducted confidentially over secure lines. My office door was closed and no one else was present in the room with me.Patient (or authorized healthcare surgical sales representative) provided consent to proceed with the visit, expressed an understanding of privacy and security of the telemedicine visit, and gave permission to have a hospital surgical sales representative in the room in order to assist with the visit and to conduct portions of the visit, as needed. I informed the patient (or authorized healthcare surgical sales representative) that I reviewed their record and presented the opportunity for them to ask any questions regarding the visit today. The patient agreed to participate. History of Present Illness Reason for Consultation: Diplopia Requesting Physician: Dr. Cameron Attending Physician: Adis Cameron MD History of Present Illness Jerman Eaton is a 72 yo M presenting with 3-5 minutes of vertical diplopia while using his mobile device. The ghost image was above and diagonal to the true tony ge. He had a different sensation in his R eye while symptoms were occurring and did try to cover each eye which eliminated the diplopia. He has not had a similar episode since and was not taking any medications. Last PCP in 2021 when his PCP retired. No history of stroke in the past. Allergies Allergy/AdvReac Type Severity Reaction Status Date / Time No Known Allergies Allergy Unverified 12/18/22 18:01 Home Medications Medication Instructions Recorded Confirmed Type No Known Home Medications 12/18/22 12/18/22 History Patient History Medical History (Updated 12/18/22 @ 19:54 by Kinsey Nam PA-C) Tobacco dependence Benign neoplasm of colon GERD (gastroesophageal reflux disease) Surgical History (Updated 12/18/22 @ 17:53 by Magdalena Sanon PA-C) History of tonsillectomy and adenoidectomy Hx of colonoscopy Family History (Updated 12/18/22 @ 17:55 by Magdalena Sanon PA-C) Other Family history non-contributory Social History Smoking Status: Current every day smoker Tobacco Type: Cigarettes Cigarettes Per Day: 20; Second Hand Exposure: No; Do You Dip or Chew Tobacco: No; Hx Alcohol Use: Yes Alcohol type: beer and hard liquor Hx Substance Use: Yes Preferred Language: Bel[place]an Communication Ability: Effective Tar Boiler Required: No Beliefs That Will Affect Care: None Current Living Situation: Spouse Other Information That Helps Us Care for You: No Feels Safe at Home: Yes Safety Concerns: Feels Safe At This Time Assistive Devices: Glasses Review of Systems +Diplopia/resolved Physical Exam Neurological Examination: Mental Status: Awake and alert. Oriented to person, place, and time. Fluent. Comprehension intact. Affect appropriate. Cranial Nerves: III/IV/: Versions intact without nystagmus VII: Facial expression symmetric VIII: Hearing intact to voice Motor: Strength was symmetric and antigravity throughout. Reflexes: Unable to assess over telemedicine Results & Data Vital Signs (Past 12 Hours) Vital Signs Temp Pulse Pulse Resp BP Pulse Ox O2 Del Method 12/19/22 09:58 Room Air 12/19/22 09:58 61 12/19/22 07:54 36.5 C 65 17 117/71 93 Room Air 12/19/22 04:00 36.5 C 66 18 121/70 96 Room Air 12/18/22 23:11 72 Laboratory Results Abnormal lab results 12/18/22 12/18/22 12/18/22 Range/Units 15:35 15:58 18:05 MPV (9.4-12.4) fL Ida # (Auto) 1.18 H (0.11-0.59) K/uL POC BUN 19 H (7-18) mg/dl BUN/Creatinine Ratio 24.1 H (10-20) Hemoglobin A1c (4.5-5.6) % Troponin I High Sens 122.6 H* 116.6 H* (0-20) pg/ml Triglycerides (0-150) mg/dl VLDL Cholesterol, Calc (0-30) mg/dl 12/19/22 Range/Units 06:34 MPV 9.1 L (9.4-12.4) fL Ida # (Auto) 1.21 H (0.11-0.59) K/uL POC BUN (7-18) mg/dl BUN/Creatinine Ratio (10-20) Hemoglobin A1c 6.0 H (4.5-5.6) % Troponin I High Sens (0-20) pg/ml Triglycerides 172 H (0-150) mg/dl VLDL Cholesterol, Calc 34 H (0-30) mg/dl Diagnostic Findings MRI brain and CTA head and neck - Unremarkable
--- NOTE | 2022-12-19 11:27 | Pharmacy Report ---
- Date of Service December 19, 2022 - Pharmacy CVA/TIA Medication Review Medications to Prevent Stroke handout has been added to the patients discharge packet. Antiplatelet(s) * Aspirin and Plavix Cholesterol * High intensity statin: atorvastatin 40 mg daily DVT Prophylaxis * None currently- patient ambulating Therapeutic Anticoagulation * No history of Afib/Aflutter noted Type 2 Diabetes * Patient does not have T2DM
--- NOTE | 2022-12-19 13:08 | Hospitalist Progress Note ---
Date of Service December 19, 2022 Assessment & Plan (1) Double vision: Plan Diplopia Likely transient ischemic attack --MRI Brain:No acute territorial infarct. --Head/Neck CTA:There is no hemorrhage, mass effect, or evidence of acute territorial ischemia by CT criteria. 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 Otherwise unremarkable CT angiogram of the brain. Unremarkable CT angiogram of the neck. There is a 3.1 cm left lobe thyroid nodule. A nonemergent thyroid ultrasound is recommended in follow-up. --ECHO pending -- Lipid panel fairly within normal limits -- Advised to quit smoking, drinking alcohol --Continue aspirin 81 mg, Plavix 75 mg daily for 21 days and then transition to aspirin 81 mg daily --No statin indicated LDL 78 per neurology (off note: Patient prefers to minimize medications use as able) --Needs follow-up with neurology as outpatient Also advised to follow-up with ophthalmology as outpatient Right internal carotid artery aneurysm Incidental finding on CT Discussed with neurology today Advised to follow-up with neurosurgery as outpatient Prediabetes HbA1c 6.0 Elevated troponin: Reports intermittent ongoing chest discomfort which she is subjectively feels musculoskeletal origin Echo pending Cardiology consulted Consider outpatient ZIO monitor, outpatient stress test per cardiology Encouraged smoking cessation and alcohol use DVT prophylaxis: SCDs for now. Code Status Full code Admission and Anticipated Discharge Date Admission Date: December 18, 2022 Subjective Patient is seen and examined at bedside Current no recurrence of visual symptoms Offers no new complaints today Denies any chest pain, dyspnea, dizziness, nausea, vomiting, abdominal pain Eager to get discharged Discussed with neurology today Review of Systems Review of Systems: All systems reviewed & are unremarkable except as noted in Subjective Physical Exam Physical Exam: Physical Exam: Vitals signs as noted above General Appearance:Moderately built and nourished, no apparent distress Head: normocephalic, Atraumatic Eyes: normal inspection, EOMI Neck: supple, Trachea midline Respiratory/Chest: Normal breath sounds, CTA, No accessory muscle use Cardiovascular: S1, S2, No murmur Abdomen/GI:Soft, Non tender, Bowel sounds present Extremities/Musculoskeletal:normal inspection, no edema Neurologic/Psych:AAOX3, grossly no focal neurological deficits Skin: normal color, warm Results & Data Results & Data Vital Signs (Past 12 Hours) Vital Signs Temp Pulse Pulse Resp BP Pulse Ox O2 Del Method 12/19/22 11:08 36.7 C 64 16 123/68 95 Room Air 12/19/22 09:58 Room Air 12/19/22 09:58 61 12/19/22 07:54 36.5 C 65 17 117/71 93 Room Air 12/19/22 04:00 36.5 C 66 18 121/70 96 Room Air Laboratory Results Short CBC 12/18/22 12/19/22 Range/Units 15:35 06:34 WBC 9.36 8.61 (4.8-10.8) K/ul Hgb 16.2 15.1 (14.0-18.0) g/dl Hct 47.2 44.5 (42.0-52.0) % Plt Count 259 231 (130-400) K/uL BMP 12/18/22 15:35 Sodium 139 Potassium 4.5 Chloride 106 Carbon Dioxide 29 BUN 19 Creatinine 0.79 Glucose 87 Calcium 9.3 Liver Function 12/18/22 Range/Units 15:35 Total Bilirubin 0.5 (0.2-1.0) mg/dl AST 22 (13-39) U/L ALT 21 (7-52) U/L Alkaline Phosphatase 48 (34-104) U/L Albumin 4.3 (3.4-5.0) gm/dl
[2022-12-19] MEDS ORDERED: STROKE PATIENT DISCHARGE STA (15:04)
--- NOTE | 2022-12-19 15:07 | Discharge Summary ---
Date of Service December 19, 2022 Admission HPI Per Admitting Provider 72-year-old male with PMH of tobacco dependence, esophageal reflux presented to the ED today with complaint of double vision yesterday. Per patient, he was watching television and playing at his mobile at the same ti me when he had abrupt onset of double vision, he arranged his glasses with no improvement, reports resolution of his double vision in about 3 to 5 minutes spontaneously. Denies any headache or dizziness, denies any focal weakness/numbness/tingling of extremities. Patient does report chronic chest pain on and off which he states comes w/ with certain movements of his hands/shoulders intermittently but not all the time. He denies fever/sore throat/cough/palpitations/abdominal pain/acute changes in his bowel or bladder habit. He has good appetite. He smokes 1 packs a day, for about 50 years. He drinks about 12 drinks in a week. Denies recreational drug use but uses marijuana very occasionally. Last use about a week ago. Patient reports he does not use any medications at home, denies any chronic past medical history. Plan of care discussed with the patient, he voiced understanding. Admission Exam Per Admitting Provider GENERAL: Alert and oriented x3. NAD, on RA. HEENT: No pallor, no icterus. Pupils equal, round and reactive to light. Oral mucosa moist. NECK: No JVD, no neck masses. HEART: S1 and S2 heard. Regular rate and rhythm. No murmur, no gallop. RESPIRATORY SYSTEM: Normal AP diameter. No accessory muscle use. No wheezing, no crackles. ABDOMEN: Soft, bowel sounds present, nontender, no distention. CENTRAL NERVOUS SYSTEM: No facial droop. Speech is clear. Obeys simple commands. Moves extremities. EXTREMITIES: No edema, no erythema seen. Principal Diagnosis Diplopia Likely transient ischemic attack Right internal carotid artery aneurysm Prediabetes Chest pain Discharge Data Allergies Allergy/AdvReac Type Severity Reaction Status Date / Time No Known Allergies Allergy Unverified 12/18/22 18:01 Consultations 12/18/22 17:45 ED Decision to Admit Stat 12/18/22 20:36 Consult Neurology Routine 12/18/22 21:00 Consult Cardiology Routine Procedures Performed Laboratory Results WBC 8.61 K/ul (4.8-10.8) 12/19/22 06:34 RBC 4.98 M/uL (4.70-6.10) 12/19/22 06:34 Hgb 15.1 g/dl (14.0-18.0) 12/19/22 06:34 POC Hgb 16.3 g/dl (14.0-18.0) 12/18/22 15:58 Hct 44.5 % (42.0-52.0) 12/19/22 06:34 POC Hct 48 % (42-52) 12/18/22 15:58 MCV 89.4 fL (80.0-100.0) 12/19/22 06:34 MCH 30.3 pg (25.0-34.0) 12/19/22 06:34 MCHC 33.9 g/dL (32.0-36.0) 12/19/22 06:34 RDW Std Deviation 44.6 fL (36.4-46.3) 12/19/22 06:34 RDW Coeff of Evan 13.7 % (11.5-14.5) 12/19/22 06:34 Plt Count 231 K/uL (130-400) 12/19/22 06:34 MPV 9.1 fL (9.4-12.4) L 12/19/22 06:34 Immature Gran % (Auto) 0.3 % 12/19/22 06:34 Neut % (Auto) 53.0 % 12/19/22 06:34 Lymph % (Auto) 29.4 % 12/19/22 06:34 [place] % (Auto) 14.1 % 12/19/22 06:34 Eos % (Auto) 2.7 % 12/19/22 06:34 Baso % (Auto) 0.5 % 12/19/22 06:34 Neut # (Auto) 4.57 K/uL (1.40-6.50) 12/19/22 06:34 Lymph # (Auto) 2.53 K/uL (1.20-3.40) 12/19/22 06:34 [place] # (Auto) 1.21 K/uL (0.11-0.59) H 12/19/22 06:34 Eos # (Auto) 0.23 K/uL (0.00-0.50) 12/19/22 06:34 Baso # (Auto) 0.04 K/uL (0.00-0.20) 12/19/22 06:34 Immature Gran # (Auto) 0.03 K/uL (0.01-0.20) 12/19/22 06:34 PT 10.8 Seconds (9.0-12.0) 12/18/22 15:35 INR 1.0 (0.9-1.1) 12/18/22 15:35 APTT 27.9 Seconds (21.0-31.0) 12/18/22 15:35 PTT Ratio 1.0 12/18/22 15:35 POC Sodium 140 mmol/L (135-144) 12/18/22 15:58 Sodium 139 mmol/L (136-145) 12/18/22 15:35 POC Potassium 4.3 mmol/L (3.3-5.0) 12/18/22 15:58 Potassium 4.5 mmol/L (3.5-5.1) 12/18/22 15:35 POC Chloride 102 mmol/L (101-112) 12/18/22 15:58 Chloride 106 mmol/L (98-107) 12/18/22 15:35 Carbon Dioxide 29 mmol/L (21-32) 12/18/22 15:35 POC Total CO2 27 mmol/L (24-31) 12/18/22 15:58 Anion Gap 4 (3-11) 12/18/22 15:35 POC Anion Gap 16.0 mmol/L (16-25) 12/18/22 15:58 POC BUN 19 mg/dl (7-18) H 12/18/22 15:58 BUN 19 mg/dl (6-23) 12/18/22 15:35 Creatinine 0.79 mg/dl (0.6-1.4) 12/18/22 15:35 POC Creatinine 0.8 mg/dl (0.6-1.3) 12/18/22 15:58 Est Cr Clr Drug Dosing 120.2 ml/min 12/18/22 15:35 Est GFR ( Amer) 105.4 ml/min 12/18/22 15:35 Est GFR (Non-Af Amer) 91.0 ml/min 12/18/22 15:35 BUN/Creatinine Ratio 24.1 (10-20) H 12/18/22 15:35 Glucose 87 mg/dl (70-99(Fasting)) 12/18/22 15:35 POC Glucose (other) 86 mg/dl (70-99) 12/18/22 15:58 Estimat Average Glucose 126 mg/dl 12/19/22 06:34 Hemoglobin A1c 6.0 % (4.5-5.6) H 12/19/22 06:34 Calcium 9.3 mg/dl (8.6-10.3) 12/18/22 15:35 POC Ioniz Calcium Jazlyn 1.22 mmol/l (1.12-1.32) 12/18/22 15:58 Total Bilirubin 0.5 mg/dl (0.2-1.0) 12/18/22 15:35 AST 22 U/L (13-39) 12/18/22 15:35 ALT 21 U/L (7-52) 12/18/22 15:35 Alkaline Phosphatase 48 U/L (34-104) 12/18/22 15:35 Troponin I High Sens 116.6 pg/ml (0-20) H* 12/18/22 18:05 Total Protein 7.0 gm/dl (6.0-8.3) 12/18/22 15:35 Albumin 4.3 gm/dl (3.4-5.0) 12/18/22 15:35 Globulin 2.7 gm/dl (2.5-4.0) 12/18/22 15:35 Albumin/Globulin Ratio 1.6 (0.9-2) 12/18/22 15:35 Triglycerides 172 mg/dl (0-150) H 12/19/22 06:34 Cholesterol 149 mg/dl (0-200) 12/19/22 06:34 LDL Cholesterol, Calc 78 mg/dl 12/19/22 06:34 VLDL Cholesterol, Calc 34 mg/dl (0-30) H 12/19/22 06:34 HDL Cholesterol 37 mg/dl 12/19/22 06:34 Cholesterol/HDL Ratio 4.0 (0-5) 12/19/22 06:34 Impressions Chest X-Ray 12/18/22 15:22 SINGLE VIEW CHEST CLINICAL HISTORY: Atypical chest pain. FINDINGS: 2 AP, portable, upright chest radiographs are compared to study dated 02/25/2018 and correlated with chest CT dated 11/27/2020. The examination is degraded by portable technique and apical lordotic positioning. The heart is enlarged noting atherosclerotic calcification of the thoracic aorta. The pulmonary vasculature is noncongested. Emphysema and chronic interstitial thickening is similar to previous. No airspace consolidation or large pleural effusion is identified. Foci of parenchymal scarring are seen throughout both lungs. No pneumothorax is seen. The skeletal structures are osteopenic. The bony thorax is grossly intact. IMPRESSION: Cardiomegaly and emphysema with no acute cardiopulmonary abnormality identified. ACT 112: Negative or not required by law. Electronically signed by: Alphonse Fitzpatrick M.D. 12/18/2022 5:[address] 12/18/22 15:[address] OF THE BRAIN; CT ANGIOGRAM OF THE BRAIN; CT ANGIOGRAM OF THE NECK CLINICAL HISTORY: Diplopia. COMPARISON STUDY: No priors. TECHNIQUE: Unenhanced axial CT scan of the brain is performed. Subsequently, following the IV administration of 112 of Optiray 320, CT angiogram of the head and neck was performed from the aortic arch to the vertex. Images are reviewed in the axial, sagittal, and coronal planes. 3-D MIPS images are created and assessed. IV contrast was administered without complication. All measurements were calculated based on NASCET criteria. A dose lowering technique was utilized adhering to the principles of ALARA. CT DOSE: 1124.86 mGy.cm FINDINGS: Brain parenchyma: There is age-related involutional change noting minimal microangiopathic disease. There is no hemorrhage, mass effect, or evidence of acute territorial ischemia by CT criteria. There is no evidence of enhancing mass lesion on the angiogram phase images. The ventricles, sulci, and cisterns are prominent secondary to involutional change. Sin-white matter differentiation is preserved. No extra-axial fluid collection is seen. Thoracic aorta: Visualized portions of the thoracic aorta are normal in caliber. The aortic arch demonstrates standard 3-vessel anatomy. Right carotid arterial system: The right common carotid artery is widely patent, as are the right internal and external carotid arteries. Left carotid arterial system: The left common carotid artery is widely patent, as are the left internal and external carotid arteries. Vertebral arteries: The vertebral arteries are widely patent bilaterally and codominant. Subclavian arteries: Widely patent bilaterally. Intracranial vasculature: There is atherosclerotic calcification of the cavernous carotid arteries. The internal carotid arteries are patent at the skull base, as are the anterior and middle cerebral arteries bilaterally. The vertebrobasilar system and posterior cerebral arteries are widely patent. The vertebral arteries are codominant. 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 No additional aneurysm is identified. No high-grade stenosis or focal vessel cut off is seen throughout the intracranial circulation. Jugular veins: Patent bilaterally. Dural sinuses: Patent. Lung apices: Partially visualized upper lobe lung parenchyma appears clear. Soft tissues: The visualized pharyngeal soft tissues are normal in appearance noting angiographic phase technique. The oropharyngeal airway appears widely patent. The thyroid gland is mildly enlarged and heterogeneous. A low- attenuation nodule in the left lobe measures 3.1 cm. The salivary glands are normal in appearance. No cervical lymphadenopathy is seen. Skeletal structures: The skeletal structures are osteopenic. The calvarium appears intact. The cervical spine is maintained noting mild multilevel spondylosis. Orbits: The bony orbits are intact. Orbital contents are normal as visualized. Sinuses and mastoids: The paranasal sinuses are clear. The mastoid air cells are well pneumatized. IMPRESSION: 1. There is no hemorrhage, mass effect, or evidence of acute territorial ischemia by CT criteria. 2. 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 3. Otherwise unremarkable CT angiogram of the brain. 4. Unremarkable CT angiogram of the neck. 5. There is a 3.1 cm left lobe thyroid nodule. A nonemergent thyroid ultrasound is recommended in follow-up. ACT 112: Positive. There are findings on this exam that require communication between the performing entity and the patient following Patient Test Result Information Act ([place] Act 112) guidelines. Electronically signed by: Alphonse Fitzpatrick M.D. 12/18/2022 4:47 PM Head CTA 12/18/22 15:[address] OF THE BRAIN; CT ANGIOGRAM OF THE BRAIN; CT ANGIOGRAM OF THE NECK CLINICAL HISTORY: Diplopia. COMPARISON STUDY: No priors. TECHNIQUE: Unenhanced axial CT scan of the brain is performed. Subsequently, following the IV administration of 112 of Optiray 320, CT angiogram of the head and neck was performed from the aortic arch to the vertex. Images are reviewed in the axial, sagittal, and coronal planes. 3-D MIPS images are created and assessed. IV contrast was administered without complication. All measurements were calculated based on NASCET criteria. A dose lowering technique was utilized adhering to the principles of ALARA. CT DOSE: 1124.86 mGy.cm FINDINGS: Brain parenchyma: There is age-related involutional change noting minimal microangiopathic disease. There is no hemorrhage, mass effect, or evidence of acute territorial ischemia by CT criteria. There is no evidence of enhancing mass lesion on the angiogram phase images. The ventricles, sulci, and cisterns are prominent secondary to involutional change. Sin-white matter differentiation is preserved. No extra-axial fluid collection is seen. Thoracic aorta: Visualized portions of the thoracic aorta are normal in caliber. The aortic arch demonstrates standard 3-vessel anatomy. Right carotid arterial system: The right common carotid artery is widely patent, as are the right internal and external carotid arteries. Left carotid arterial system: The left common carotid artery is widely patent, as are the left internal and external carotid arteries. Vertebral arteries: The vertebral arteries are widely patent bilaterally and codominant. Subclavian arteries: Widely patent bilaterally. Intracranial vasculature: There is atherosclerotic calcification of the cavernous carotid arteries. The internal carotid arteries are patent at the skull base, as are the anterior and middle cerebral arteries bilaterally. The vertebrobasilar system and posterior cerebral arteries are widely patent. The vertebral arteries are codominant. 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 No additional aneurysm is identified. No high-grade stenosis or focal vessel cut off is seen throughout the intracranial circulation. Jugular veins: Patent bilaterally. Dural sinuses: Patent. Lung apices: Partially visualized upper lobe lung parenchyma appears clear. Soft tissues: The visualized pharyngeal soft tissues are normal in appearance n oting angiographic phase technique. The oropharyngeal airway appears widely patent. The thyroid gland is mildly enlarged and heterogeneous. A low- attenuation nodule in the left lobe measures 3.1 cm. The salivary glands are normal in appearance. No cervical lymphadenopathy is seen. Skeletal structures: The skeletal structures are osteopenic. The calvarium appears intact. The cervical spine is maintained noting mild multilevel spondylosis. Orbits: The bony orbits are intact. Orbital contents are normal as visualized. Sinuses and mastoids: The paranasal sinuses are clear. The mastoid air cells are well pneumatized. IMPRESSION: 1. There is no hemorrhage, mass effect, or evidence of acute territorial ischemia by CT criteria. 2. 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 3. Otherwise unremarkable CT angiogram of the brain. 4. Unremarkable CT angiogram of the neck. 5. There is a 3.1 cm left lobe thyroid nodule. A nonemergent thyroid ultrasound is recommended in follow-up. ACT 112: Positive. There are findings on this exam that require communication between the performing entity and the patient following Patient Test Result Information Act ([place] Act 112) guidelines. Electronically signed by: Alphonse Fitzpatrick M.D. 12/18/2022 4:47 PM Neck CTA 12/18/22 15:[address] OF THE BRAIN; CT ANGIOGRAM OF THE BRAIN; CT ANGIOGRAM OF THE NECK CLINICAL HISTORY: Diplopia. COMPARISON STUDY: No priors. TECHNIQUE: Unenhanced axial CT scan of the brain is performed. Subsequently, following the IV administration of 112 of Optiray 320, CT angiogram of the head and neck was performed from the aortic arch to the vertex. Images are reviewed in the axial, sagittal, and coronal planes. 3-D MIPS images are created and assessed. IV contrast was administered without complication. All measurements were calculated based on NASCET criteria. A dose lowering technique was utilized adhering to the principles of ALARA. CT DOSE: 1124.86 mGy.cm FINDINGS: Brain parenchyma: There is age-related involutional change noting minimal microangiopathic disease. There is no hemorrhage, mass effect, or evidence of acute territorial ischemia by CT criteria. There is no evidence of enhancing mass lesion on the angiogram phase images. The ventricles, sulci, and cisterns are prominent secondary to involutional change. Sin-white matter differentiation is preserved. No extra-axial fluid collection is seen. Thoracic aorta: Visualized portions of the thoracic aorta are normal in caliber. The aortic arch demonstrates standard 3-vessel anatomy. Right carotid arterial system: The right common carotid artery is widely patent, as are the right internal and external carotid arteries. Left carotid arterial system: The left common carotid artery is widely patent, as are the left internal and external carotid arteries. Vertebral arteries: The vertebral arteries are widely patent bilaterally and codominant. Subclavian arteries: Widely patent bilaterally. Intracranial vasculature: There is atherosclerotic calcification of the cavernous carotid arteries. The internal carotid arteries are patent at the skull base, as are the anterior and middle cerebral arteries bilaterally. The vertebrobasilar system and posterior cerebral arteries are widely patent. The vertebral arteries are codominant. 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 No additional aneurysm is identified. No high-grade stenosis or focal vessel cut off is seen throughout t he intracranial circulation. Jugular veins: Patent bilaterally. Dural sinuses: Patent. Lung apices: Partially visualized upper lobe lung parenchyma appears clear. Soft tissues: The visualized pharyngeal soft tissues are normal in appearance noting angiographic phase technique. The oropharyngeal airway appears widely patent. The thyroid gland is mildly enlarged and heterogeneous. A low-atte nuation nodule in the left lobe measures 3.1 cm. The salivary glands are normal in appearance. No cervical lymphadenopathy is seen. Skeletal structures: The skeletal structures are osteopenic. The calvarium appears intact. The cervical spine is maintained noting mild multilevel spondylosis. Orbits: The bony orbits are intact. Orbital contents are normal as visualized. Sinuses and mastoids: The paranasal sinuses are clear. The mastoid air cells are well pneumatized. IMPRESSION: 1. There is no hemorrhage, mass effect, or evidence of acute territorial ischemia by CT criteria. 2. 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 3. Otherwise unremarkable CT angiogram of the brain. 4. Unremarkable CT angiogram of the neck. 5. There is a 3.1 cm left lobe thyroid nodule. A nonemergent thyroid ultrasound is recommended in follow-up. ACT 112: Positive. There are findings on this exam that require communication between the performing entity and the patient following Patient Test Result Information Act ([place] Act 112) guidelines. Electronically signed by: Alphonse Fitzpatrick M.D. 12/18/2022 4:47 PM Brain MRI 12/18/22 18:15 Exam(s): MRI HEAD W/WO Contrast IV Amt: 12 cc omar EXAM: MR Head Without and With Intravenous Contrast CLINICAL HISTORY: Reason for exam: Diplopia, r/o TIA. TECHNIQUE: Magnetic resonance images of the head/brain without and with intravenous contrast in multiple planes. CONTRAST: Patient received 12 cc omar of IV contrast COMPARISON: No relevant prior studies available. FINDINGS: No acute territorial infarct. No acute intracranial hemorrhage. No midline shift or mass effect. The territorial sin-white matter differentiation is maintained throughout. Age-related cerebral volume loss. Periventricular and subcortical white matter T2 signal intensity, consistent with chronic microangiopathy. The visualized orbits appear grossly unremarkable. The calvarium is intact. The visualized paranasal sinuses and mastoid air cells are grossly clear. IMPRESSION: No acute territorial infarct. No acute intracranial hemorrhage. No midline shift or mass effect. Electronically signed by: Juventino Huitron MD 12/18/22 21:42 PM Ordered Studies 12/18/22 15:[address] [CT head/brain wo con] Stat 12/18/22 15:45 CTA head w con [CT angio head w con] Stat CTA neck with con [CT angio neck with con] Stat 12/18/22 18:15 MR brain wo/w con Routine Hospital Course (1) Double vision: Plan Diplopia Likely transient ischemic attack --MRI Brain:No acute territorial infarct. --Head/Neck CTA:There is no hemorrhage, mass effect, or evidence of acute territorial ischemia by CT criteria. 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 Otherwise unremarkable CT angiogram of the brain. Unremarkable CT angiogram of the neck. There is a 3.1 cm left lobe thyroid nodule. A nonemergent thyroid ultrasound is recommended in follow-up. --ECHO: EF 55 to 60%. Mild concentric LVH. Grade 1 diastolic dysfunction. No significant valvular pathology. -- Lipid panel fairly within normal limits -- Advised to quit smoking, drinking alcohol --Continue aspirin 81 mg, Plavix 75 mg daily for 21 days and then transition to aspirin 81 mg daily --No statin indicated LDL 78 per neurology (off note: Patient prefers to minimize medications use as able) --Needs follow-up with neurology as outpatient Also advised to follow-up with ophthalmology as outpatient Right internal carotid artery aneurysm Incidental finding on CT Discussed with neurology today Advised to follow-up with neurosurgery as outpatient Prediabetes HbA1c 6.0 Elevated troponin: Reports intermittent ongoing chest discomfort which she is subjectively feels musculoskeletal origin Echo as above Appreciate cardiology input Consider outpatient ZIO monitor, outpatient stress test per cardiology Encouraged smoking cessation and alcohol use DVT prophylaxis: SCDs for now. Code Status Full code Total Time Total Time Spent Total Time Spent (In Minutes): 59 minutes Discharge Plan Discharge Items Patient Disposition: Home - Self-Care Reason For Visit: DIPLOPIA, R/O TIA Discharge Diagnosis: Diplopia Likely transient ischemic attack Right internal carotid artery aneurysm Prediabetes Chest pain Activity: Per Instructions section Exercise/Sports: Wait until after follow-up appointment Non-emergency contact: Primary Care Provider, Intake Coordinator and Neurologist Call non-emergency contact if: you have any medication questions, your symptoms worsen, your pain is concerning for you and you have a fever Follow-up/Referrals: [facility] Cardiology [facility] [Other] (For Zio Monitor application: 12/24/2022 1:30 PM Provider NURSE CARDIO [facility] Department Cardiac Studies, [facility] ) Theresa Peterson DO [Primary Care Provider] - (Date & Time 12/23/2022 11:20 AM Provider Theresa Peterson DO Department Family Practice [facility] ) Benito Rees DO [Intake Coordinator] - (Date & Time 01/27/2023 9:00 AM Provider Benito Rees DO Department Cardiology, [facility] ) Naomi Pyle PA-C [Physician Authorization Manager] - (Date & Time 02/25/2023 11:20 AM Provider Naomi Pyle PA-C Department Neurology [facility] ) Diet: Heart Healthy Addtl Attending Provider Instructions: Follow-up with your primary care physician on 12/23/2022 11:20 AM Follow-up with your neurologist Naomi Pyle PA-C on 02/25/2023 11:20 AM Follow-up with your personal care assistant Dr. Rees as advised for outpatient ZIO monitor, stress test. Follow-up with your media marketing specialist in 3 to 4 weeks as advised. Follow-up with your neurosurgeon for further evaluation of right internal carotid artery aneurysm as advised. --- Quit smoking tobacco as advised. Minimize alcohol use as advised. ---Continue aspirin 81 mg, Plavix 75 mg daily for 21 days and then transition to aspirin 81 mg daily alone as recommended by your neurologist. -- Monitor your blood pressure regularly at home. Discuss with your physician for adjustment of medications as needed. Seek immediate medical attention if your symptoms reoccur or worsen Please take all medications as instructed on discharge list below. Please call if you have any questions or problems. You can reach a [facility] hospitalist on duty at [facility] 24 hours a day by calling [phone] Risk Factors for Stroke: You can reduce your chances of stroke by working with your medical provider to adopt a healthy lifestyle. Some specific ways to lower your chance of stroke are: * If you are a smoker, now is the time to stop smoking cigarettes * If you are diabetic, improve the control of your blood sugars * Avoid excessive amounts of alcohol * Control high blood pressure * Lose weight if you are overweight * Be sure to lead an active lifestyle * Eat a healthy diet low in salt, cholesterol and fat You should know about other risk factors for stroke that you are unable to control. These include: * Age 55 years or older * Male gender * Certain racial groups: , or / * Family History of Stroke, Mini stroke or Heart Attack * Sickle Cell Disease Follow Up: It is important for you to keep your follow up appointments with your medical provider. Who to Call and When: Medical Emergencies: Call 911 immediately if you experience any of the following warning signs and symptoms of Stroke: * Sudden numbness or weakness of the face, arm or leg, especially on one side of the body * Sudden confusion, trouble speaking or understanding * Sudden trouble seeing in one or both eyes * Sudden trouble walking, dizziness, loss of balance or coordination * Sudden severe headache with no cause Do not delay calling 911 if you experience any warning signs or symptoms of a stroke. Delay in seeking medical attention may affect what treatments can be given to you. . Pending Studies at Discharge: No Stand-Alone Forms: [facility], Smoking Cessation, Medications to Prevent Stroke Medications and DC Order Prescriptions: New clopidogrel 75 mg Tablet 75 mg PO QAM Qty: 20 0RF aspirin 81 mg Tablet,Delayed Release (Dr/Ec) 81 mg PO QAM Qty: 30 1RF Discharge Orders: Discharge Order (Routine); Ordered 12/19/22 Ordered By: Adis Waters/Other Patient Handouts: A1C, 5 Steps for Eating Healthier Admission Data Admit Date/Time: 12/18/22 18:24 Attending Provider: Adis Cameron Admit Provider: Rodriguez Pate Primary Care Provider: Keiter,Cardenas K. Other Providers: Rodriguez Pate; Laya Peoples; Meir Snow; Sahyan Velazquez; Benito Rees; Camilo Bae; Levi Norris; Gala Herrera; Naomi Duran; Laya Sarkar; All Morales; Kishore Covarrubias; Tiesha Hinojosa; Tati Staples; Mouna Linares; Kenneth Pearce; Pop Solis
--- NOTE | 2022-12-19 16:37 | Electrocardiogram Report ---
Test Reason : Blood Pressure : / mmHG Vent. Rate : 067 BPM Atrial Rate : 067 BPM P-R Int : 156 ms QRS Dur : 086 ms QT Int : 412 ms P-R-T Axes : 012 053 051 degrees QTc Int : 435 ms Normal sinus rhythm Normal ECG When compared with ECG of 18-DEC-2022 15:57, (unconfirmed) No significant change was found Confirmed by Abdiaziz Rincon ([id number]) on 12/19/2022 4:37:20 PM Referred By: REFERRED SELF Confirmed By:Fede Rincon
--- NOTE | 2022-12-19 16:38 | Electrocardiogram Report ---
Test Reason : Blood Pressure : / mmHG Vent. Rate : 062 BPM Atrial Rate : 062 BPM P-R Int : 150 ms QRS Dur : 088 ms QT Int : 418 ms P-R-T Axes : 005 052 038 degrees QTc Int : 424 ms Normal sinus rhythm Normal ECG No previous ECGs available Confirmed by Abdiaziz Rincon ([id number]) on 12/19/2022 4:38:04 PM Referred By: REFERRED SELF Confirmed By:Fede Rincon
--- NOTE | 2022-12-20 15:09 | Pharmacy Report ---
Pharmacist Stroke Counseling - Date of Service December 20, 2022 - Scope: Pharmacy has been consulted to provide medication discharge counseling for this patient admitted with [ischemic stroke] [hemorrhagic stroke] [transient ischemic attack] as per the Pharmacist Discharge Counseling for Stroke Patients Prot ocol. - Medications on Discharge: New Rx's Medication Instructions Recorded aspirin 81 mg tablet,delayed 81 mg PO QAM #30 tabs 12/19/22 release clopidogrel 75 mg tablet 75 mg PO QAM #20 tabs 12/19/22 - Action: The above medications, specifically ones for stroke treatment/prophylaxis, have been reviewed in detail with the patient and/or patient appeals representative(s) prior to discharge. This includes indication, common adverse reactions, drug interactions, and medication administration. Medication counseling has been employed using the teach-back method to ensure understanding. - Outcome: The patient and/or patient appeals representative(s) have demonstrated understanding of the medications. Additional comments: Spoke with patient over the phone to review medications on discharge. Patient actually on his way to pharmacy to leaf size picker prescriptions. I talked about the importance of not missing doses with these medications and also cautioned him on potential side effects. He reports he has PCP visit next week. I recommended he take a list of his medications with him. He is aware he is to take the asp/plavix combo x 3 weeks, then aspirin alone indefinitely. We talked about the importance of good blood pressure control in stroke prevention. Patient reports he has been trying to reestablish care with new doctors as his previous doctors have retired, but will be sure to make regular visits. No other questions/concerns from patient. Interview cut short as patient driving. He is aware to follow up with his PCP if any concerns Thank you for allowing pharmacy to be involved in the care of this patient. Please call [phone] with any additional questions
== END 2022-12-19 15:54 | disposition home or self-care (01) ==
LOC: ED 14:26 → EDINP 14:26 → SUATTDRO 18:24 → 2N 22:21